=== PATIENT | female | born 1965 | race Two or more races ===

== ENCOUNTER 2018-10-19 02:23 | Emergency (ER) | payer OTHER ==
[~2018-10-19] VITALS: Ht 152.4 cm; Wt 59.0 kg
[2018-10-19] MEDS ORDERED: NKM (02:31)
--- NOTE | 2018-10-19 02:45 | NUR ---
ED Nurse Note: RECIEVED PT WALK IN FROM WORK, PT HAS PAIN TO RIGHT HAND AND WRIST, STATES SHE WAS ATEMPTING TO HELP PT UP AND HE PULLED ON HER HAND AND WRIST TWISTING IT, NO DEFORMITY OR SWELLING NOTED, PT ABLE TO MOVE EXTREMITY AND ALL FINGERS, ALL PULSES ARE PRESENT WITH CAP REFILL <3 SEC., PT DAUGHTER IS PRESSENT ALSO TO ASSIST WITH BULGARIAN TRANSLATION, PT DENIES ANY OTHER INJURIES OR COMPLAITNS, WILL RESUME CARE ORDERED AND CLOSELY MONITOR.
[2018-10-19] MEDS ORDERED: IBUPROFEN600 MG ORAL (03:01)
--- NOTE | 2018-10-19 03:02 | Emergency Room Report ---
History of Present Illness General Chief Complaint: Lower Extremity Injury Source: Patient Present Illness HPI Is a 53-year-old female who works as a [employer]. She presents with chief complaint of right wrist pain. Onset was yesterday. She was helping a patient and was grabbed onto the right wrist. She said was squeezed very hard. She had some pain initially but now more throbbing pain. Localized to the ulnar aspect. Worse with movement. Pain rating of her forearm. No other trauma. Pain is 8 out of 10. No relief with Tylenol. No nausea no vomiting. Allergies: Coded Allergies: No Known Allergies (Unverified , 10/19/18) Patient History Past Medical History: none, see triage record, old chart reviewed Past Surgical History: none Pertinent Family History: none Social History: Denies: smoking Last Menstrual Period: n/a Now: No Immunizations: other Reviewed Nursing Documentation: PMH: Agreed; PSxH: Agreed Nursing Documentation-PMH Past Medical History: No Stated History Review of Systems Eye: Denies: eye pain, blurred vision ENT: Denies: ear pain, nose congestion, throat swelling Respiratory: Denies: cough, shortness of breath Cardiovascular: Denies: chest pain, palpitations Gastrointestinal: Denies: abdominal pain, diarrhea, nausea, vomiting Musculoskeletal: Reports: joint pain; Denies: back pain Skin: Denies: rash Neurological: Denies: headache, numbness Endocrine: Denies: increased thirst, increased urine Hematologic/Lymphatic: Denies: easy bruising All Other Systems: negative except mentioned in HPI Physical Exam Vital Signs Date Time Temp Pulse Resp B/P (MAP) Pulse Ox O2 Delivery O2 Flow Rate FiO2 10/19/18 02:25 98.2 75 18 98 Room Air vitals with htn Sp02 EP Interpretation: reviewed, normal General Appearance: well appearing, no apparent distress, alert Head: normocephalic, atraumatic Eyes: bilateral eye PERRL, bilateral eye EOMI ENT: hearing grossly normal, normal pharynx Neck: full range of motion, supple, no meningismus Respiratory: chest non-tender, lungs clear, normal breath sounds Cardiovascular #1: regular rate, rhythm, no murmur Gastrointestinal: normal bowel sounds, non tender, no mass, no organomegaly, no bruit, non-distended Musculoskeletal: back normal, gait/station normal, normal range of motion, other - Right wrist: Tenderness over the ulnar aspect. Full range of motion. No deformity. Sensation normal. Neurologic: alert, oriented x3 Psychiatric: mood/affect normal Skin: warm/dry Procedures Splinting Splinting : Consent: Verbal Location: Right wrist Pre-Made Type: velcro Splint: wrist Pre-Proc Neuro Vasc Exam: normal Post-Proc Neuro Vasc Exam: normal Patient Tolerated: Well Complications: None Medical Decision Making Diagnostic Impression: Primary Impression: Right wrist sprain Qualified Codes: S63.501A - Unspecified sprain of right wrist, initial encounter ER Course Patient presents with right wrist sprain. No fracture dislocation. We'll discharge home. Other X-Ray Diagnostic Results Other X-Ray Diagnostic Results : X-Ray ordered: X-rays right wrist # of Views/Limited Vs Complete: 3 View Indication: Pain EP Interpretation: Yes Interpretation: no dislocation, no soft tissue swelling, no fractures Impression: No acute disease Electronically Signed by: Nawaf Beebe MD Last Vital Signs Date Time Temp Pulse Resp B/P (MAP) Pulse Ox O2 Delivery O2 Flow Rate FiO2 10/19/18 02:25 98.2 75 18 98 Room Air Status: improved Disposition: HOME, SELF-CARE Condition: Stable Scripts Ibuprofen* (MOTRIN*) 600 Mg Tablet 600 MG ORAL THREE TIMES A DAY, #30 TAB 0 Refills Prov: Nawaf Beebe MD 10/19/18 Additional Instructions: Follow-up with your employer within a week. Return if symptom worsen. Nawaf Beebe MD October 19, 2018 03:02
--- NOTE | 2018-10-19 03:15 | NUR ---
ED Nurse Note: PT ARRIVED WITH SLIGHTLY ELEVATED B/P, PT CALMED AND V/S RE-TAKEN AND REPORTED TO MD IMMEDIATELY, PT DENIES CP, SOB, OR ANY OTHER DISCOMFORTS, WILL CONTINUE TO CLOSELY MONITOR, PT X-RAYS JUST COMPPLETED.
[2018-10-19 03:25] VITALS: BP 167/77
[2018-10-19 03:50] VITALS: BP 158/71
--- NOTE | 2018-10-19 03:55 | NUR ---
ER DISCHARGE NOTE: Patient is cleared to be discharged per ERMD, pt is aox4, on room air, with stable vital signs. pt was given dc and prescription instructions, pt was able to verbalize understanding, pt id band removed without complications. pt is able to ambulate with steady gait. pt took all belongings. pt daughter is present to drive her.
--- NOTE | 2018-10-19 11:38 | Diagnostic Imaging Report ---
Indication: Right wrist pain Findings: 3 views of the right wrist were obtained. No acute fractures, malalignment, erosions or periostitis are identified. Soft tissues are unremarkable. Impression: No acute findings.
== END 2018-10-19 03:45 | disposition home or self-care (01) ==
LOC: EMR 02:55
DX: S63.501A Unspecified sprain of right wrist, initial encounter (principal); X58.XXXA Exposure to other specified factors, initial encounter; Y92.9 Unspecified place or not applicable; Y99.0 Civilian activity done for income or pay
CPT/HCPCS: 29125; 99283